=== PATIENT | female | born 1990 | race African-American/Black ===

== ENCOUNTER 2021-01-23 10:26 | Inpatient (IN) | payer BC ==
[~2021-01-23] VITALS: Ht 175.3 cm; Wt 60.3 kg
[2021-01-23] MEDS ORDERED: ACETAMINOPHEN 650 MG/SUPP.RECT RC ONE ×2 (10:43→11:00)
[2021-01-23] MEDS ORDERED: IV NS 0.9% 2,000 ML IV ONE (11:00)
[2021-01-23] MEDS ORDERED: PIPERACILLIN /TAZOBACTAM 3.375 G in IV D5W 50 ML IV ONE (11:00)
[2021-01-23] MEDS ORDERED: VANCOMYCIN 1 GM in IV D5W 250 ML IV ONE (11:00)
[2021-01-23 11:08] LABS: CARBON DIOXIDE 29 mmol/L (21-32); CHLORIDE 100 mmol/L (98-107); CREATININE 0.7 mg/dL (0.6-1.3); GLUCOSE 127 mg/dL (74-106); POTASSIUM 4.1 mmol/L (3.5-5.1); SODIUM SERUM 138 mmol/L (136-145); UREA NITROGEN, BLOOD 9 mg/dL (7-18)
[2021-01-23 11:09] LABS: BASOPHILS # (AUTO) 0.1 /CMM (0.0-0.2); BASOPHILS % (AUTO) 0.4 % (0.0-2.0); CALCIUM, SERUM 9.5 mg/dL (8.5-10.1); MEAN CORPUSCULAR HGB CONC 33 g/dl (31.0-36.0); NEUTROPHILS % (AUTO) 84.5 % (43.0-81.0)
[2021-01-23 11:12] LABS: EOSINOPHILS % (AUTO) 0.3 % (0.0-6.0); HEMATOCRIT 37 % (33-45); HEMOGLOBIN 12.4 g/dL (11.5-14.8); LYMPHOCYTES # (AUTO) 2.2 /CMM (0.8-4.8); MEAN CORPUSCULAR VOLUME 96 fL (82-100); MONOCYTES # (AUTO) 2.5 /CMM (0.1-1.30); MONOCYTES % (AUTO) 7.8 % (2.0-12.0); NEUTROPHILS # (AUTO) 26.9 /CMM (1.8-8.9); PLATELET COUNT (AUTO) 384 /CMM (150-450); RED BLOOD CELL COUNT(AUTO) 3.88 MIL/uL (4.0-5.2)
[2021-01-23 11:14] LABS: WHITE BLOOD COUNT (AUTO) 31.9 K/uL (4.3-11.0)
[2021-01-23 11:18] LABS: ALANINE AMINOTRANSFERASE 53 U/L (12-78); ALBUMIN 3.1 g/dL (3.4-5.0); ALKALINE PHOSPHATASE 130 U/L (46-116); ASPARTATE AMINOTRANSFERASE 27 U/L (15-37); BILIRUBIN,DIRECT 0.1 mg/dL (0.0-0.2); BILIRUBIN,TOTAL 0.2 mg/dL (0.2-1.0); TOTAL PROTEIN, SERUM 8.3 g/dL (6.4-8.2)
[2021-01-23 11:49] LABS: BILIRUBIN,URINE Negative (NEGATIVE); COLOR,URINE YELLOW (YELLOW); LEUKOCYTE ESTERASE ,URINE Negative (NEGATIVE); NITRITE, URINE Negative (NEGATIVE); PROTEIN,URINE 100 mg/dl (NEGATIVE); UGLUCOSE Negative (NEGATIVE)
[2021-01-23 11:57] LABS: RBC,URINE 0-2 /HPF (0-2); WBC,URINE 0-2 /HPF (0-3)
[2021-01-23 11:58] LABS: BACTERIA,URINE Few /HPF (None Seen); SQUAMOUS EPITHELIAL CELL,UR Few /HPF (None Seen)
[2021-01-23] MEDS ORDERED: ACET325T53 GT (12:20)
[2021-01-23] MEDS ORDERED: HYDR-3980 GT (12:20)
[2021-01-23] MEDS ORDERED: MULT-447 GT (12:20)
[2021-01-23] MEDS ORDERED: LORA-259 GT (12:20)
[2021-01-23] MEDS ORDERED: CHLO473M3 MM (12:20)
[2021-01-23] MEDS ORDERED: METO25TA6 GT (12:20)
[2021-01-23] MEDS ORDERED: MAGN400O6 GT (12:20)
[2021-01-23] MEDS ORDERED: [UNRECOGNIZED DRUG - CODE] SQ (12:20)
[2021-01-23] MEDS ORDERED: LEVE500T9 GT (12:20)
[2021-01-23] MEDS ORDERED: POLY17PO4 GT (12:20)
[2021-01-23] MEDS ORDERED: OMEP20TA5 GT (12:20)
[2021-01-23] MEDS ORDERED: IPRA4AER IH ×2 (12:20)
[2021-01-23] MEDS ORDERED: VITA1CAP GT (12:20)
[2021-01-23 12:45] LABS: BAND % (MANUAL) 2 % (0.0-5.0); LYMPHOCYTES % (MANUAL) 9 % (16-48); MONOCYTES % (MANUAL) 6 % (0-11.0); NEUTROPHILS % (MANUAL) 83 (42-76)
[2021-01-23] MEDS ORDERED: CT SWABBABLE VALVE TRANS SET 1 EA INFUS.SET MC ONE (14:26)
[2021-01-23] MEDS ORDERED: IV NS 0.9% 250 ML IV ONE (14:26)
[2021-01-23] MEDS ORDERED: IOHEXOL-300 100 ML VIAL IV ONE (14:26)
[2021-01-23] MEDS ORDERED: HYDROCODONE/APAP 10/325MG TABLET GT PRN (14:30)
[2021-01-23] MEDS ORDERED: Z GUARD REMEDY 2 OZ OINT TP PRN (14:30)
[2021-01-23] MEDS ORDERED: ONDANSETRON HCL/PF 4 MG/2 ML VIAL IVP PRN (14:30)
[2021-01-23] MEDS ORDERED: ACETAMINOPHEN 325 MG TABLET PO PRN (14:30)
[2021-01-23] MEDS ORDERED: LORAZEPAM 1 MG TABLET GT PRN (14:30)
[2021-01-23] MEDS ORDERED: MAG HYDROX/AL HYDROX/SIMETH 30 ML UDC PO PRN (14:30)
[2021-01-23] MEDS ORDERED: MAGNESIUM HYDROXIDE 30 ML UDC GT PRN ×2 (14:30→15:46)
[2021-01-23] MEDS ORDERED: MAGNESIUM HYDROXIDE 30 ML UDC PO PRN (14:30)
[2021-01-23] MEDS ORDERED: IV NS 0.9% 1,000 ML IV PRN (14:30)
[2021-01-23] MEDS ORDERED: ZOLPIDEM TARTRATE 5 MG TABLET PO PRN (14:30)
[2021-01-23] MEDS ORDERED: ZOLPIDEM TARTRATE 5 MG TABLET GT PRN (15:43)
[2021-01-23] MEDS ORDERED: MAG HYDROX/AL HYDROX/SIMETH 30 ML UDC GT PRN (15:46)
[2021-01-23] MEDS ORDERED: ZOSYN IVPB 3.375 G in IV D5W 50ml IV SCH (17:00)
[2021-01-23] MEDS: CHLORHEXIDINE GLUCONATE 15 ML UDC MM SCH (17:12)
[2021-01-23] MEDS: ACETAMINOPHEN 650 MG/20.3 ML UDC GT PRN ×2 (17:12→23:26)
[2021-01-23 17:28] VITALS: BP 159/81
[2021-01-23] MEDS: JEVITY 1.2 CAL 1,000 ML BOTTLE GT PRN (18:52)
[2021-01-23 20:00] VITALS: BP 135/58
[2021-01-23] MEDS: LEVETIRACETAM SOL (5 ML) 100 MG/ML UDC GT SCH (20:11)
[2021-01-23] MEDS: VANCOMYCIN 0.75 GM in IV D5W 250 ML IV SCH (20:11)
[2021-01-23] MEDS: METOPROLOL TARTRATE 25 MG TABLET GT SCH (20:13)
[2021-01-23] MEDS: POLYETHYLENE GLYCOL 3350 17 GM POWD.PACK GT SCH (20:13)
[2021-01-23] MEDS: HEPARIN SODIUM, PORCINE 5000 UNITS/1 ML VIAL SQ SCH (20:14)
[2021-01-23] MEDS ORDERED: LEVETIRACETAM (250 MG) 250 MG TABLET PO SCH (21:00)
[2021-01-23] MEDS ORDERED: CEFEPIME 1 GM VIAL IM SCH (21:00)
[2021-01-23] MEDS: CEFEPIME 2 GM in IV D5W 100 ML IV SCH (23:26)
[2021-01-23] MEDS: IV NS 0.9% 1,000 ML IV PRN (23:26)
[2021-01-24] VITALS: BP 107/64
[2021-01-24 04:00] VITALS: BP 124/87
[2021-01-24] MEDS: VANCOMYCIN 0.75 GM in IV D5W 250 ML IV SCH ×3 (04:26→20:28)
[2021-01-24] MEDS: ACETAMINOPHEN 650 MG/20.3 ML UDC GT PRN ×2 (05:35→14:35)
[2021-01-24] MEDS ORDERED: PANTOPRAZOLE 40 MG TABLET.DR PO SCH (07:30)
[2021-01-24 07:37] LABS: CALCIUM, SERUM 8.7 mg/dL (8.5-10.1); CREATININE 0.7 mg/dL (0.6-1.3); MAGNESIUM 2.1 mg/dL (1.8-2.4); PHOSPHORUS 2.2 mg/dL (2.5-4.9); POTASSIUM 3.5 mmol/L (3.5-5.1)
[2021-01-24] MEDS: CEFEPIME 2 GM in IV D5W 100 ML IV SCH ×3 (07:42→22:55)
[2021-01-24] MEDS: PANTOPRAZOLE 40 MG/PACK PACK GT SCH (07:44)
[2021-01-24 07:50] LABS: BASOPHILS # (AUTO) 0.1 /CMM (0.0-0.2); BASOPHILS % (AUTO) 0.4 % (0.0-2.0); EOSINOPHILS % (AUTO) 0.3 % (0.0-6.0); HEMATOCRIT 34 % (33-45); HEMOGLOBIN 11.3 g/dL (11.5-14.8); LYMPHOCYTES # (AUTO) 2.1 /CMM (0.8-4.8); LYMPHOCYTES % (AUTO) 8.5 % (20.0-44.0); MEAN CORPUSCULAR HGB CONC 33 g/dl (31.0-36.0); MEAN CORPUSCULAR VOLUME 97 fL (82-100); MONOCYTES # (AUTO) 1.1 /CMM (0.1-1.30); MONOCYTES % (AUTO) 4.4 % (2.0-12.0); NEUTROPHILS # (AUTO) 21.5 /CMM (1.8-8.9); NEUTROPHILS % (AUTO) 86.4 % (43.0-81.0); PLATELET COUNT (AUTO) 338 /CMM (150-450); RED BLOOD CELL COUNT(AUTO) 3.48 MIL/uL (4.0-5.2); WHITE BLOOD COUNT (AUTO) 24.9 K/uL (4.3-11.0)
[2021-01-24 07:56] LABS: THYROID STIMULATING HORMONE 0.606 uIU/mL (0.358-3.74)
[2021-01-24 08:00] VITALS: BP 99/68
[2021-01-24] MEDS: CHLORHEXIDINE GLUCONATE 15 ML UDC MM SCH ×2 (08:41→16:06)
[2021-01-24] MEDS: POLYETHYLENE GLYCOL 3350 17 GM POWD.PACK GT SCH ×2 (08:41→20:28)
[2021-01-24] MEDS: LEVETIRACETAM SOL (5 ML) 100 MG/ML UDC GT SCH ×2 (08:42→20:29)
[2021-01-24] MEDS: HEPARIN SODIUM, PORCINE 5000 UNITS/1 ML VIAL SQ SCH ×2 (08:43→20:30)
[2021-01-24] MEDS: METOPROLOL TARTRATE 25 MG TABLET GT SCH ×2 (09:00→20:22)
[2021-01-24] MEDS ORDERED: NEUTRA PHOS 1 POWD.PACKET GT ONE (11:00)
[2021-01-24 12:00] VITALS: BP 104/65
[2021-01-24] MEDS: IV NS 0.9% 1,000 ML IV PRN ×2 (12:37→23:41)
[2021-01-24 16:00] VITALS: BP 107/78
[2021-01-24 20:00] VITALS: BP 95/56
[2021-01-24] MEDS: JEVITY 1.2 CAL 1,000 ML BOTTLE GT PRN (23:48)
[2021-01-25] VITALS: BP 104/65
[2021-01-25] MEDS: VANCOMYCIN 0.75 GM in IV D5W 250 ML IV SCH ×3 (03:34→20:03)
[2021-01-25 04:00] VITALS: BP 109/64
[2021-01-25] MEDS: CEFEPIME 2 GM in IV D5W 100 ML IV SCH ×3 (06:05→23:47)
[2021-01-25] MEDS: PANTOPRAZOLE 40 MG/PACK PACK GT SCH (06:50)
[2021-01-25 07:20] LABS: BASOPHILS # (AUTO) 0.1 /CMM (0.0-0.2); BASOPHILS % (AUTO) 0.9 % (0.0-2.0); EOSINOPHILS % (AUTO) 1.2 % (0.0-6.0); HEMATOCRIT 31 % (33-45); HEMOGLOBIN 10.4 g/dL (11.5-14.8); LYMPHOCYTES # (AUTO) 1.9 /CMM (0.8-4.8); MEAN CORPUSCULAR HGB CONC 34 g/dl (31.0-36.0); MEAN CORPUSCULAR VOLUME 97 fL (82-100); MONOCYTES # (AUTO) 0.7 /CMM (0.1-1.30); MONOCYTES % (AUTO) 5.2 % (2.0-12.0); NEUTROPHILS # (AUTO) 10.6 /CMM (1.8-8.9); NEUTROPHILS % (AUTO) 78.7 % (43.0-81.0); PLATELET COUNT (AUTO) 364 /CMM (150-450); WHITE BLOOD COUNT (AUTO) 13.5 K/uL (4.3-11.0)
[2021-01-25 07:31] LABS: ALBUMIN 2.2 g/dL (3.4-5.0); BILIRUBIN,TOTAL 0.2 mg/dL (0.2-1.0); CALCIUM, SERUM 8.2 mg/dL (8.5-10.1); CREATININE 0.6 mg/dL (0.6-1.3); MAGNESIUM 1.8 mg/dL (1.8-2.4); PHOSPHORUS 3.3 mg/dL (2.5-4.9); POTASSIUM 3.8 mmol/L (3.5-5.1); TOTAL PROTEIN, SERUM 6.1 g/dL (6.4-8.2)
[2021-01-25 08:00] VITALS: BP 119/71
[2021-01-25] MEDS: CHLORHEXIDINE GLUCONATE 15 ML UDC MM SCH ×2 (08:28→16:26)
[2021-01-25] MEDS: POLYETHYLENE GLYCOL 3350 17 GM POWD.PACK GT SCH ×2 (08:28→21:00)
[2021-01-25] MEDS: LEVETIRACETAM SOL (5 ML) 100 MG/ML UDC GT SCH ×2 (08:28→21:00)
[2021-01-25] MEDS: METOPROLOL TARTRATE 25 MG TABLET GT SCH ×2 (08:29→20:59)
[2021-01-25] MEDS: HEPARIN SODIUM, PORCINE 5000 UNITS/1 ML VIAL SQ SCH ×2 (08:30→21:04)
[2021-01-25] MEDS: IV NS 0.9% 1,000 ML IV PRN ×2 (08:41→17:09)
[2021-01-25 12:00] VITALS: BP 114/70
[2021-01-25 16:00] VITALS: BP 114/70
[2021-01-25] MEDS: JEVITY 1.2 CAL 1,000 ML BOTTLE GT PRN (17:09)
[2021-01-25 20:00] VITALS: BP 132/66
[2021-01-25] MEDS: ACETAMINOPHEN 650 MG/20.3 ML UDC GT PRN (21:00)
[2021-01-26] MEDS: IV NS 0.9% 1,000 ML IV PRN ×2 (03:10→15:48)
[2021-01-26] MEDS: VANCOMYCIN 0.75 GM in IV D5W 250 ML IV SCH ×2 (03:58→12:00)
[2021-01-26 04:00] VITALS: BP 140/92
[2021-01-26 06:36] LABS: BASOPHILS # (AUTO) 0.1 /CMM (0.0-0.2); BASOPHILS % (AUTO) 1.1 % (0.0-2.0); EOSINOPHILS % (AUTO) 1.3 % (0.0-6.0); HEMATOCRIT 31 % (33-45); HEMOGLOBIN 10.6 g/dL (11.5-14.8); LYMPHOCYTES # (AUTO) 2.3 /CMM (0.8-4.8); LYMPHOCYTES % (AUTO) 19.8 % (20.0-44.0); MEAN CORPUSCULAR HGB CONC 34 g/dl (31.0-36.0); MEAN CORPUSCULAR VOLUME 97 fL (82-100); MONOCYTES # (AUTO) 0.8 /CMM (0.1-1.30); MONOCYTES % (AUTO) 6.6 % (2.0-12.0); NEUTROPHILS # (AUTO) 8.1 /CMM (1.8-8.9); NEUTROPHILS % (AUTO) 71.2 % (43.0-81.0); PLATELET COUNT (AUTO) 491 /CMM (150-450); RED BLOOD CELL COUNT(AUTO) 3.25 MIL/uL (4.0-5.2); WHITE BLOOD COUNT (AUTO) 11.4 K/uL (4.3-11.0)
[2021-01-26] MEDS: CEFEPIME 2 GM in IV D5W 100 ML IV SCH ×3 (06:46→23:13)
[2021-01-26 08:00] VITALS: BP 147/100
[2021-01-26 08:16] LABS: ALBUMIN 2.5 g/dL (3.4-5.0); BILIRUBIN,TOTAL 0.2 mg/dL (0.2-1.0); CALCIUM, SERUM 8.8 mg/dL (8.5-10.1); CREATININE 0.5 mg/dL (0.6-1.3); MAGNESIUM 1.8 mg/dL (1.8-2.4); POTASSIUM 3.8 mmol/L (3.5-5.1); TOTAL PROTEIN, SERUM 6.6 g/dL (6.4-8.2)
[2021-01-26] MEDS: METOPROLOL TARTRATE 25 MG TABLET GT SCH ×2 (09:28→21:08)
[2021-01-26] MEDS: LEVETIRACETAM SOL (5 ML) 100 MG/ML UDC GT SCH ×2 (09:28→21:07)
[2021-01-26] MEDS: POLYETHYLENE GLYCOL 3350 17 GM POWD.PACK GT SCH ×2 (09:28→21:08)
[2021-01-26] MEDS: CHLORHEXIDINE GLUCONATE 15 ML UDC MM SCH ×2 (09:28→16:16)
[2021-01-26] MEDS: HEPARIN SODIUM, PORCINE 5000 UNITS/1 ML VIAL SQ SCH ×2 (09:29→21:09)
[2021-01-26] MEDS: PANTOPRAZOLE 40 MG/PACK PACK GT SCH (09:29)
[2021-01-26] MEDS: JEVITY 1.2 CAL 1,000 ML BOTTLE GT PRN (09:41)
[2021-01-26] MEDS: ACETYLCYSTEINE 10% SOLN 400 MG/4 ML VIAL NEB SCH ×2 (15:13→23:29)
[2021-01-26 16:00] VITALS: BP 142/90
[2021-01-26] MEDS: ACETAMINOPHEN 650 MG/20.3 ML UDC GT PRN (16:16)
[2021-01-26 20:00] VITALS: BP 140/86
[2021-01-27] VITALS (7 sets, daily range): BP systolic 139–147; BP diastolic 81–98
[2021-01-27] MEDS: IV NS 0.9% 1,000 ML IV PRN ×2 (00:18→22:12)
[2021-01-27] MEDS: JEVITY 1.2 CAL 1,000 ML BOTTLE GT PRN (05:18)
[2021-01-27 06:09] LABS: BASOPHILS # (AUTO) 0.1 /CMM (0.0-0.2); BASOPHILS % (AUTO) 0.9 % (0.0-2.0); EOSINOPHILS % (AUTO) 0.8 % (0.0-6.0); HEMATOCRIT 36 % (33-45); LYMPHOCYTES # (AUTO) 2.6 /CMM (0.8-4.8); LYMPHOCYTES % (AUTO) 26.1 % (20.0-44.0); MEAN CORPUSCULAR HGB CONC 34 g/dl (31.0-36.0); MEAN CORPUSCULAR VOLUME 96 fL (82-100); MONOCYTES # (AUTO) 0.7 /CMM (0.1-1.30); MONOCYTES % (AUTO) 6.7 % (2.0-12.0); NEUTROPHILS # (AUTO) 6.5 /CMM (1.8-8.9); NEUTROPHILS % (AUTO) 65.5 % (43.0-81.0); PLATELET COUNT (AUTO) 511 /CMM (150-450); WHITE BLOOD COUNT (AUTO) 9.9 K/uL (4.3-11.0)
[2021-01-27 06:36] LABS: ALBUMIN 2.6 g/dL (3.4-5.0); BILIRUBIN,TOTAL 0.2 mg/dL (0.2-1.0); CALCIUM, SERUM 8.7 mg/dL (8.5-10.1); CREATININE 0.6 mg/dL (0.6-1.3); MAGNESIUM 1.8 mg/dL (1.8-2.4); POTASSIUM 3.9 mmol/L (3.5-5.1); TOTAL PROTEIN, SERUM 6.9 g/dL (6.4-8.2)
[2021-01-27] MEDS: ACETYLCYSTEINE 10% SOLN 400 MG/4 ML VIAL NEB SCH ×3 (07:18→22:35)
[2021-01-27] MEDS: CEFEPIME 2 GM in IV D5W 100 ML IV SCH ×3 (08:25→22:12)
[2021-01-27] MEDS: LEVETIRACETAM SOL (5 ML) 100 MG/ML UDC GT SCH ×2 (08:26→20:45)
[2021-01-27] MEDS: PANTOPRAZOLE 40 MG/PACK PACK GT SCH (08:26)
[2021-01-27] MEDS: POLYETHYLENE GLYCOL 3350 17 GM POWD.PACK GT SCH ×2 (08:28→20:44)
[2021-01-27] MEDS: METOPROLOL TARTRATE 25 MG TABLET GT SCH ×2 (08:28→20:45)
[2021-01-27] MEDS: HEPARIN SODIUM, PORCINE 5000 UNITS/1 ML VIAL SQ SCH ×2 (08:31→20:46)
[2021-01-27] MEDS: CHLORHEXIDINE GLUCONATE 15 ML UDC MM SCH ×2 (08:40→16:13)
[2021-01-27] MEDS ORDERED: VANCOMYCIN 0.75 GM in IV D5W 250 ML IV SCH (09:00)
[2021-01-27] MEDS: NYSTATIN (PYXIS) 500,000 UNIT/5 ML ORAL.SUSP PO SCH (17:08)
[2021-01-28 04:00] VITALS: BP 130/80
[2021-01-28] MEDS: JEVITY 1.2 CAL 1,000 ML BOTTLE GT PRN (05:13)
[2021-01-28 05:56] LABS: BASOPHILS # (AUTO) 0.1 /CMM (0.0-0.2); BASOPHILS % (AUTO) 0.9 % (0.0-2.0); EOSINOPHILS % (AUTO) 1.4 % (0.0-6.0); HEMATOCRIT 31 % (33-45); HEMOGLOBIN 10.8 g/dL (11.5-14.8); LYMPHOCYTES # (AUTO) 1.9 /CMM (0.8-4.8); LYMPHOCYTES % (AUTO) 21.9 % (20.0-44.0); MEAN CORPUSCULAR HGB CONC 35 g/dl (31.0-36.0); MEAN CORPUSCULAR VOLUME 96 fL (82-100); MONOCYTES # (AUTO) 0.6 /CMM (0.1-1.30); MONOCYTES % (AUTO) 7.2 % (2.0-12.0); NEUTROPHILS % (AUTO) 68.6 % (43.0-81.0); PLATELET COUNT (AUTO) 435 /CMM (150-450); RED BLOOD CELL COUNT(AUTO) 3.25 MIL/uL (4.0-5.2); WHITE BLOOD COUNT (AUTO) 8.8 K/uL (4.3-11.0)
[2021-01-28] MEDS: CEFEPIME 2 GM in IV D5W 100 ML IV SCH ×2 (06:01→14:33)
[2021-01-28 06:34] LABS: ALBUMIN 2.3 g/dL (3.4-5.0); BILIRUBIN,TOTAL 0.2 mg/dL (0.2-1.0); CALCIUM, SERUM 8.6 mg/dL (8.5-10.1); CREATININE 0.5 mg/dL (0.6-1.3); PHOSPHORUS 3.9 mg/dL (2.5-4.9); POTASSIUM 3.8 mmol/L (3.5-5.1); TOTAL PROTEIN, SERUM 6.2 g/dL (6.4-8.2)
[2021-01-28] MEDS: ACETYLCYSTEINE 10% SOLN 400 MG/4 ML VIAL NEB SCH ×2 (07:13→15:12)
[2021-01-28] MEDS: IV NS 0.9% 1,000 ML IV PRN (07:40)
[2021-01-28 08:00] VITALS: BP 134/79
[2021-01-28] MEDS: PANTOPRAZOLE 40 MG/PACK PACK GT SCH (08:05)
[2021-01-28] MEDS: CHLORHEXIDINE GLUCONATE 15 ML UDC MM SCH ×2 (08:05→17:17)
[2021-01-28] MEDS: ACETAMINOPHEN 650 MG/20.3 ML UDC GT PRN ×2 (08:05→14:33)
[2021-01-28] MEDS: NYSTATIN (PYXIS) 500,000 UNIT/5 ML ORAL.SUSP PO SCH ×3 (08:05→17:17)
[2021-01-28] MEDS: POLYETHYLENE GLYCOL 3350 17 GM POWD.PACK GT SCH (08:05)
[2021-01-28] MEDS: METOPROLOL TARTRATE 25 MG TABLET GT SCH (08:06)
[2021-01-28] MEDS: HEPARIN SODIUM, PORCINE 5000 UNITS/1 ML VIAL SQ SCH (08:08)
[2021-01-28] MEDS: LEVETIRACETAM SOL (5 ML) 100 MG/ML UDC GT SCH (08:09)
[2021-01-28 16:00] VITALS: BP 148/75
== END 2021-01-28 19:03 | DRG 720 ==
LOC: ER 10:35 → TELE1 15:21 → TELE-TD 17:11 → MEDSG1 01-25 11:06
PROC: 05HC33Z Insertion of Infusion Device into Left Basilic Vein, Percutaneous Approach (ICD-10-PCS; principal; 2021-01-24)
DX: A41.1 Sepsis due to other specified staphylococcus (principal); G93.1 Anoxic brain damage, not elsewhere classified; J96.10 Chronic respiratory failure, unspecified whether with hypoxia or hypercapnia; R53.2 Functional quadriplegia; Z93.0 Tracheostomy status; J18.9 Pneumonia, unspecified organism; Z86.74 Personal history of sudden cardiac arrest; A41.89 Other specified sepsis; I10 Essential (primary) hypertension; Z93.1 Gastrostomy status; Z20.822 Contact with and (suspected) exposure to COVID-19; R13.10 Dysphagia, unspecified; F25.9 Schizoaffective disorder, unspecified; Z79.51 Long term (current) use of inhaled steroids; Z79.899 Other long term (current) drug therapy; K21.9 Gastro-esophageal reflux disease without esophagitis; Z86.59 Personal history of other mental and behavioral disorders; G40.909 Epilepsy, unspecified, not intractable, without status epilepticus; Y95 Nosocomial condition; Z79.01 Long term (current) use of anticoagulants
CPT/HCPCS: 31720; 36415; 71045-TC; 80048-TC; 80053-TC; 80061-TC; 80076-TC; 80202-TC; 81001; 83605-TC; 83735-TC; 84100-TC; 84443-TC; 84484-TC; 84703-TC; 85025-TC; 85730-TC; 87040-TC; 87070-TC; 87081-TC; 87086-TC; 87186-TC; 94640-TC; 94668-TC; 94760-TC; 94762-TC; 94799-TC; A4623; A6253; A7526; G0378; J0692; J1644; J1953; J2543; J3370; J3490; J7030; J7050; J7060; Q9967; U0003